=== PATIENT | female | born 2000 | race African-American/Black ===

== ENCOUNTER 2021-04-07 17:25 | Emergency (ER) | payer OTHER ==
[~2021-04-07] VITALS: Ht 165.1 cm; Wt 87.0 kg
[2021-04-07] MEDS ORDERED: PREDNISONE 20MG TABLET PO STA (18:47)
[2021-04-07] MEDS ORDERED: IPRATROPIUM BROMIDE (0.02%) 0.5MG/2.5ML NEB HHN STA (18:47)
[2021-04-07] MEDS ORDERED: ALBUTEROL (0.083%) 2.5MG/3ML NEB HHN STA (18:47)
[2021-04-07] MEDS ORDERED: ALBU6.7H9 INH (20:10)
[2021-04-07] MEDS ORDERED: P20 MT (20:10)
[2021-04-07 21:29] VITALS: BP 117/78
== END 2021-04-07 21:26 | disposition home or self-care (01) ==
LOC: ER 17:25
DX: J45.901 Unspecified asthma with (acute) exacerbation (principal); Z20.822 Contact with and (suspected) exposure to COVID-19; Z91.013 Allergy to seafood
CPT/HCPCS: 94640; 99283; C9803; J7512; U0003; U0005; Z7610

== ENCOUNTER 2025-01-15 16:42 | Emergency (ER) | payer SELFPAY ==
[~2025-01-15] VITALS: Ht 172.7 cm; Wt 75.0 kg
[~2025-01-15 16:42] MED LIST: ALBU6.7H3 INH; P20 MT
[2025-01-15 16:45] VITALS: O2SAT 97
[2025-01-15 16:48] VITALS: BP 120/83; TEMP 36.9
[2025-01-15] MEDS: DEXAMETHASONE 2MG TABLET PO ONE (17:30)
[2025-01-15] MEDS: IPRATROPIUM/ALBUTEROL 0.5-3(2.5)MG/3ML NEB HHN ONE ×2 (17:43→18:54)
[2025-01-15 17:45] VITALS: PULSE 86; RESP 22
[2025-01-15] MEDS: DEXAMETHASONE 4MG TABLET PO NR (18:03)
[2025-01-15 18:30] VITALS: PULSE 90; RESP 26; O2SAT 99
[2025-01-16] MEDS ORDERED: P20 MT (12:49)
== END 2025-01-15 19:23 | disposition home or self-care (01) ==
LOC: ER 16:42
DX: J45.901 Unspecified asthma with (acute) exacerbation (principal)
CPT/HCPCS: 71045; 94640; 93005; 99284; J8540; Z7610 ×3; 94070

== ENCOUNTER 2025-01-16 11:09 | Emergency (ER) | payer SELFPAY ==
[~2025-01-16] VITALS: Ht 165.1 cm; Wt 75.0 kg
[2025-01-16 11:16] VITALS: TEMP 36.9
[2025-01-16] MEDS: PREDNISONE 20MG TABLET PO STA (11:54)
[2025-01-16 12:25] VITALS: PULSE 100; RESP 18; O2SAT 98
[2025-01-16] MEDS: ALBUTEROL (0.083%) 2.5MG/3ML NEB HHN STA (12:25)
[2025-01-16] MEDS: IPRATROPIUM BROMIDE (0.02%) 0.5MG/2.5ML NEB HHN STA (12:25)
[2025-01-16] MEDS ORDERED: P20 MT (12:49)
[2025-01-16 13:31] VITALS: BP 138/86; PULSE 99; RESP 18; O2SAT 100
[2025-01-16] MEDS ORDERED: DEXAMETHASONE 1MG TABLET PO ONE ×2 (14:00→14:30)
[2025-01-16] MEDS ORDERED: DEXAMETHASONE 4MG TABLET PO NR ×2 (14:15→14:30)
== END 2025-01-16 13:49 | disposition home or self-care (01) ==
LOC: ER 11:12
DX: J45.901 Unspecified asthma with (acute) exacerbation (principal); Z91.013 Allergy to seafood
CPT/HCPCS: 94640; 99283; J8540; J7512; Z7610; 94070